=== PATIENT | female | born 1955 | race Caucasian/White ===

== ENCOUNTER 2017-01-09 07:49 | Day surgery (SDC) | payer OTHER ==
[~2017-01-09 07:49] MED LIST: ANASTROZOLE1 M1 PO; CALCIUM CARBON600 M2 PO; DELTASONE20 MG PO; IBUPROFEN200 M2 PO
== END 2017-01-09 14:20 ==
LOC: SHSB 07:49 → PACU 11:02 → SHSB 11:56
PROC: 07B74ZX Excision of Thorax Lymphatic, Percutaneous Endoscopic Approach, Diagnostic (ICD-10-PCS; principal; 2017-01-09)
DX: C81.92 Hodgkin lymphoma, unspecified, intrathoracic lymph nodes (principal); J45.909 Unspecified asthma, uncomplicated; J70.0 Acute pulmonary manifestations due to radiation; Z85.3 Personal history of malignant neoplasm of breast; Z79.899 Other long term (current) drug therapy; Z90.49 Acquired absence of other specified parts of digestive tract; Z98.51 Tubal ligation status
CPT/HCPCS: C1729; J0690

== ENCOUNTER 2017-02-09 08:09 | Day surgery (SDC) | payer OTHER ==
[2017-02-09 08:50] LABS: HCT-HEMATOCRIT 32.2 % (34.0-49.0); HGB-HEMOGLOBIN 9.7 gm/dl (12.0-15.5); MCH (MEAN CORPUSCULAR HGB) 26.4 pg (28.0-32.0); MCHC MEAN CORPUSCULAR HGB CONC 30.1 % (32.0-36.0); MCV (MEAN CELL VOLUME) 87.5 fl (82.0-96.0); MEAN PLATELET VOLUME 9.8 cmc (9.4-12.4); NEUTROPHIL-AUTOMATED 5.1 tho/cmm (1.6-8.0); PLATELET COUNT 260 tho/cmm (150-450); RED BLOOD COUNT 3.68 mil/cmm (4.00-5.20); RED CELL DISTRIBUTION WIDTH 16.2 % (12.4-16.4); WHITE BLOOD COUNT 10.6 tho/cmm (4.0-10.0)
[2017-02-09] MEDS ORDERED: TYLENOL325 M2 PO (08:56)
[2017-02-09 08:58] LABS: PROTHROMBIN TIME 11.6 SECONDS (9.0-13.6)
[2017-02-09 09:05] LABS: ANION GAP 13 mmol/L (0-20); BLOOD UREA NITROGEN 10 mg/dl (6-24); CALCIUM 9.7 mg/dl (8.5-10.5); CARBON DIOXIDE-VENOUS 30 mmol/L (22-32); CHLORIDE 102 mmol/l (96-110); CREATININE 0.83 mg/dl (0.50-1.10); GLUCOSE 110 mg/dL (70-110); POTASSIUM 3.8 mmol/L (3.7-5.1); SODIUM 141 mmol/L (135-145); eGFR VALUE FOR BLACK 89 mL/Min
[2017-02-09 09:32] LABS: BAND % 15 % (0-20); BAND ABSOLUTE COUNT 1.6 tho/cmm (0-2.0); WBC MORPHOLOGY TOXIC GRANULATION
== END 2017-02-09 13:10 ==
LOC: RADSP 08:09 → SHSB 08:12
PROVIDERS: Radiology Diagnostic Radiology
PROC: 3C1ZX8Z Irrigation of Indwelling Device using Irrigating Substance, External Approach (ICD-10-PCS; principal; 2017-02-09)
DX: T82.898A Other specified complication of vascular prosthetic devices, implants and grafts, initial encounter (principal); C81.92 Hodgkin lymphoma, unspecified, intrathoracic lymph nodes; Z79.811 Long term (current) use of aromatase inhibitors; Z79.52 Long term (current) use of systemic steroids; Z79.899 Other long term (current) drug therapy; Z85.3 Personal history of malignant neoplasm of breast; Z80.1 Family history of malignant neoplasm of trachea, bronchus and lung; Z90.49 Acquired absence of other specified parts of digestive tract; Z90.89 Acquired absence of other organs; Z98.51 Tubal ligation status; Z98.890 Other specified postprocedural states
CPT/HCPCS: C1773; C1894; J0690; J2250; J3010; J7030; Q9967